=== PATIENT | female | born 1945 | race Caucasian/White ===

== ENCOUNTER 2016-06-18 18:11 | Emergency (ER) | payer MEDICARE, OTHER ==
--- NOTE | 2016-06-18 19:15 | DIAGNOSTIC IMAGING REPORT ---
PROCEDURE: CT HEAD WITHOUT CONTRAST INDICATION: Dizziness , initial encounter TECHNIQUE: Noncontrast axial images with sagittal and coronal reformations. COMPARISON: Head CT 06/08/2015 FINDINGS: Sulci and ventricular cyst are normal. Moderate to severe white matter chronic ischemic changes. Stable small lacunar infarcts in the basal ganglia bilaterally. Old right frontal lobe infarct. No evidence of acute intracranial process. Mild right maxillary sinus disease. Mastoids are clear. IMPRESSION: 1. No acute intracranial abnormality 2. Moderate to severe white matter chronic ischemic changes with stable tiny lacunar infarcts in the basal ganglia bilaterally 3. Old right frontal lobe infarct 4. Findings discussed with Dr. Polk at 07:14 p.m., [place] Standard Time
--- NOTE | 2016-06-18 19:47 | ED ORDER SUMMARY ---
..... Patient: LIZZIE GIRALDO OrderSheet [facility] VisitID: [id number] [place] [address] 71y, F Registration Date/Time: 06/18/2016 ORDER SHEET Weight: 58.9 kg (stated) Allergies: Vancomycin GENERAL ORDERS: CT Head wo Cont Urgent (18:44 06/18/2016 Sammie PEREZ) (Ack 18:48 TBergley) (19:11 RFay) CBC w Diff Urgent (18:44 06/18/2016 Sammie PEREZ) (Ack 18:48 TBergley) (18:48 TBergley) CMP Urgent (18:44 06/18/2016 Sammie PEREZ) (Ack 18:48 TBergley) (18:48 TBergley) UA-Culture if indicated Urgent (18:44 06/18/2016 Sammie PEREZ) (Ack 18:48 TBergley) (19:35 ALawrence ER Tech1) EKG - ER Stat (18:45 06/18/2016 Sammie PEREZ) (Ack 18:48 TBergley) (18:49 TBergley) MEDICATION ORDERS: Antivert PO 25 mg (NOW) (19:35 06/18/2016 Sammie PEREZ) (19:55 DBeyer R.N.) Bactrim DS PO (Tablet 800-160 mg) 1 tab (NOW) (19:43 06/18/2016 Sammie PEREZ) (19:56 DBeyer R.N.) IV FLUIDS: Zofran IV 4 mg (NOW) (19:35 06/18/2016 Sammie PEREZ) (19:55 DBeyer R.N.) ORDER SHEET NOTES: [Electronically signed by Sandro Aly R.N. (02:59 06/19/2016)] [Electronically signed by Nick Polk MD (23:20 06/20/2016)] [Electronically locked/signed by Sandro Aly R.N. (02:59 06/19/2016)]
--- NOTE | 2016-06-18 19:47 | ED NURSING NOTES ---
Clinical Report - Nurses [facility] [address] [place] [address] 06/18/2016 18:13 [id number] Triage time 18:15. Acuity: LEVEL 2. 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 18:27 06/18/16. SEPSIS SCREEN: Sepsis Screen. Negative (no infection suspected/documented). LORELEI COMA SCORE: [place] Coma Scale: 15- eyes open spontaneously (4); best verbal response- oriented x 4 (5); best motor response- obeys commands (6). --18:27 Sam Milan R.N. 18:19 06/18/16. BP: 204/90. HR: 58. RR: 12. O2 saturation: 100% on room air. Temp: 97.9 F (oral). Pain level now: 0/10. --18:27 Sam Milan R.N. 18:28 06/18/16. BP: 179/94. HR: 58. RR: 12. O2 saturation: 99% on room air. Pain level now: 0/10. --18:28 Sam Milan R.N. Weight: 58.9 kg stated. Height/Length: 65 inches Per Patient. BMI: 21.6. --18:26 Sam Milan R.N. Medications FLUoxetine HCl Oral. Lantus Subcutaneous. Methotrexate Sodium Injection. Metoprolol Tartrate Oral. Pravastatin Sodium Oral. --18:23 Sam Milan R.N. Allergies Vancomycin. --18:22 Sam Milan R.N. History Arrived by private vehicle. Historian: patient. Accompanied by family. Patient was last known well (1714). She has had trouble walking. PAST MEDICAL HX: Immunizations: (Flu vaccine 2016). SOCIAL HX: Never smoker. No alcohol use or drug use. ABUSE ASSESSMENT: No report of abuse. --18:27 Simbeck, Sam, R.N. PROBLEMS: Diabetes Mellitus. CVA - Cerebrovascular Accident. Fall. Abrasion(s). Contusion. Tetanus Status. CVA with brain bleed. Diabetes Mellitus Type 2. Rheumatoid Arthritis. Hypercholesterolemia. Hypertension. --18:24 Sam Milan R.N. ADDITIONAL SURGERIES: . Knee Surgery. Rt knee. Sleep apnea surgery. --18:24 Sam Milan R.N. Interventions ID band on patient. To treatment room. --18:27 Sam Milan R.N. PHYSICAL ASSESSMENT late entry -18:26. To room via wheelchair. GENERAL / NEURO / PSYCH: Oriented X 4. Alert. Speech within normal limits. She has had new onset of generalized weakness. Staggering gait (per pt report. Transferred from w/c to bed with assist, stand pivot.). HEENT: Pupils equal, round and reactive to light. RESPIRATORY: Breath sounds within normal limits. Respirations not labored. CVS: Cardiac rhythm: sinus bradycardia. Capillary refill less than 2 seconds. GI / : Abdomen soft and nontender. SKIN: Skin is warm and dry. --18:38 Sam Milan R.N. NURSING PROGRESS NOTES late entry -18:26. Cardiac rhythm: sinus bradycardia. bus driver/monitor, pulse oximeter and NIBP monitor placed on patient; monitoring manager- Lead II and V5; monitor alarms on. Patient gowned. Reassurance given. Two patient identifiers checked. Call light placed in reach. Side rails up x 2. Bed placed in lowest position. Brakes of bed on. Patient ready for evaluation- chart flagged. --18:39 Sam Milan R.N. 18:26 06/18/2016 Site #1 started via IV in the right wrist with an 20g angiocath, with aseptic technique and good blood return; one attempt. Blood drawn: rainbow set. Labeled in the presence of the patient and sent to the lab. Saline lock flushed with 10 mL saline. --18:41 Sam Milan R.N. EKG time: (1830 PM). EKG was ordered, performed by a tech and shown to the ED physician. --18:52 Abby Luciano 18:50 06/18/16. BP: 184/97. HR: 56. RR: 18. O2 saturation: 97% on room air. 18:28 06/18/16. BP: 179/94. HR: 58. RR: 12. O2 saturation: 99% on room air. Pain level now: 0/10. 18:19 06/18/16. BP: 204/90. HR: 58. RR: 12. O2 saturation: 100% on room air. Temp: 97.9 F (oral). Pain level now: 0/10. --19:12 Rachid Robles R.N. 19:10. Care transferred and report given (LYNNE Jo). --19:12 Sam Milan R.N. 19:34 06/18/16. BP: 168/111. HR: 54. RR: 20. O2 saturation: 96%. --19:35 Sandro Aly R.N. ( Pt able to stand for bedside commode she was dizzy but steady.). --19:35 Sandro Aly R.N. 19:55 06/18/2016 Zofran (Ondansetron HCl) IVP 4 mg given over 2 minute(s) via site #1. Allergies verified and confirmed 5 rights. IV patency established. IV site checked: no pain, redness, or swelling. IV flushed thoroughly pre- and post-medication administration. IVP given by RN. --19:55 Sandro Aly R.N. 19:55 06/18/2016 Antivert (Meclizine HCl) PO 25 mg given. Allergies verified, confirmed 5 rights and sedative warning given to the patient. --19:55 Sandro Aly R.N. 19:56 06/18/2016 Bactrim DS (Sulfamethoxazole-TMP DS) PO 1 tab given. Allergies verified and confirmed 5 rights. --19:56 Sandro Aly R.N. DISPOSITION / DISCHARGE Departure time: 1999. Condition at departure: improved. No learning barriers present. Reviewed medication(s) side effects information. Prescription(s) given to the patient. Patient verbalized understanding. Written instructions provided in Peruvian. The patient was discharged by the physician. She was discharged home and accompanied by family. ( Pt able to stand to use wheelchair steady on her feet pt verbalized understanding of discharge instructions and follow up care). --20:34 Sandro Aly R.N. 20:00 06/18/16. BP: 184/89. HR: 56. RR: 18. O2 saturation: 97%. Temp: 97.8 F. Pain level now: 0/10. --20:34 Sandro Aly R.N. Locked/Released at 06/19/2016 2:59 by Sandro Aly R.N.
--- NOTE | 2016-06-18 19:47 | ED NURSING NOTES ---
Clinical Report - Nurses [facility] [address] [place] [address] 06/18/2016 18:13 [id number] Triage time 18:15. Acuity: LEVEL 2. 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 18:27 06/18/16. SEPSIS SCREEN: Sepsis Screen. Negative (no infection suspected/documented). LORELEI COMA SCORE: [place] Coma Scale: 15- eyes open spontaneously (4); best verbal response- oriented x 4 (5); best motor response- obeys commands (6). --18:27 Sam Milan R.N. 18:19 06/18/16. BP: 204/90. HR: 58. RR: 12. O2 saturation: 100% on room air. Temp: 97.9 F (oral). Pain level now: 0/10. --18:27 Sam Milan R.N. 18:28 06/18/16. BP: 179/94. HR: 58. RR: 12. O2 saturation: 99% on room air. Pain level now: 0/10. --18:28 Sam Milan R.N. Weight: 58.9 kg stated. Height/Length: 65 inches Per Patient. BMI: 21.6. --18:26 Sam Milan R.N. Medications FLUoxetine HCl Oral. Lantus Subcutaneous. Methotrexate Sodium Injection. Metoprolol Tartrate Oral. Pravastatin Sodium Oral. --18:23 Sam Milan R.N. Allergies Vancomycin. --18:22 Sam Milan R.N. History Arrived by private vehicle. Historian: patient. Accompanied by family. Patient was last known well (1714). She has had trouble walking. PAST MEDICAL HX: Immunizations: (Flu vaccine 2016). SOCIAL HX: Never smoker. No alcohol use or drug use. ABUSE ASSESSMENT: No report of abuse. --18:27 Simbeck, Sam, R.N. PROBLEMS: Diabetes Mellitus. CVA - Cerebrovascular Accident. Fall. Abrasion(s). Contusion. Tetanus Status. CVA with brain bleed. Diabetes Mellitus Type 2. Rheumatoid Arthritis. Hypercholesterolemia. Hypertension. --18:24 Sam Milan R.N. ADDITIONAL SURGERIES: . Knee Surgery. Rt knee. Sleep apnea surgery. --18:24 Sam Milan R.N. Interventions ID band on patient. To treatment room. --18:27 Sam Milan R.N. PHYSICAL ASSESSMENT late entry -18:26. To room via wheelchair. GENERAL / NEURO / PSYCH: Oriented X 4. Alert. Speech within normal limits. She has had new onset of generalized weakness. Staggering gait (per pt report. Transferred from w/c to bed with assist, stand pivot.). HEENT: Pupils equal, round and reactive to light. RESPIRATORY: Breath sounds within normal limits. Respirations not labored. CVS: Cardiac rhythm: sinus bradycardia. Capillary refill less than 2 seconds. GI / : Abdomen soft and nontender. SKIN: Skin is warm and dry. --18:38 Sam Milan R.N. NURSING PROGRESS NOTES late entry -18:26. Cardiac rhythm: sinus bradycardia. plastering supervisor, pulse oximeter and NIBP monitor placed on patient; collections officer- Lead II and V5; monitor alarms on. Patient gowned. Reassurance given. Two patient identifiers checked. Call light placed in reach. Side rails up x 2. Bed placed in lowest position. Brakes of bed on. Patient ready for evaluation- chart flagged. --18:39 Sam Milan R.N. 18:26 06/18/2016 Site #1 started via IV in the right wrist with an 20g angiocath, with aseptic technique and good blood return; one attempt. Blood drawn: rainbow set. Labeled in the presence of the patient and sent to the lab. Saline lock flushed with 10 mL saline. --18:41 Sam Milan R.N. EKG time: (1830 PM). EKG was ordered, performed by a tech and shown to the ED physician. --18:52 Abby Luciano 18:50 06/18/16. BP: 184/97. HR: 56. RR: 18. O2 saturation: 97% on room air. 18:28 06/18/16. BP: 179/94. HR: 58. RR: 12. O2 saturation: 99% on room air. Pain level now: 0/10. 18:19 06/18/16. BP: 204/90. HR: 58. RR: 12. O2 saturation: 100% on room air. Temp: 97.9 F (oral). Pain level now: 0/10. --19:12 Rachid Robles R.N. 19:10. Care transferred and report given (LYNNE Jo). --19:12 Sam Milan R.N. 19:34 06/18/16. BP: 168/111. HR: 54. RR: 20. O2 saturation: 96%. --19:35 Sandro Aly R.N. ( Pt able to stand for bedside commode she was dizzy but steady.). --19:35 Sandro Aly R.N. 19:55 06/18/2016 Zofran (Ondansetron HCl) IVP 4 mg given over 2 minute(s) via site #1. Allergies verified and confirmed 5 rights. IV patency established. IV site checked: no pain, redness, or swelling. IV flushed thoroughly pre- and post-medication administration. IVP given by RN. --19:55 Sandro Aly R.N. 19:55 06/18/2016 Antivert (Meclizine HCl) PO 25 mg given. Allergies verified, confirmed 5 rights and sedative warning given to the patient. --19:55 Sandro Aly R.N. 19:56 06/18/2016 Bactrim DS (Sulfamethoxazole-TMP DS) PO 1 tab given. Allergies verified and confirmed 5 rights. --19:56 Sandro Aly R.N. DISPOSITION / DISCHARGE Departure time: 1999. Condition at departure: improved. No learning barriers present. Reviewed medication(s) side effects information. Prescription(s) given to the patient. Patient verbalized understanding. Written instructions provided in Monegasque. The patient was discharged by the physician. She was discharged home and accompanied by family. ( Pt able to stand to use wheelchair steady on her feet pt verbalized understanding of discharge instructions and follow up care). --20:34 Sandro Aly R.N. 20:00 06/18/16. BP: 184/89. HR: 56. RR: 18. O2 saturation: 97%. Temp: 97.8 F. Pain level now: 0/10. --20:34 Sandro Aly R.N. Locked/Released at 06/19/2016 2:59 by Sandro Aly R.N.
--- NOTE | 2016-06-18 19:47 | ED ORDER SUMMARY ---
..... Patient: LIZZIE GIRALDO OrderSheet [facility] VisitID: [id number] [place] [address] 71y, F Registration Date/Time: 06/18/2016 ORDER SHEET Weight: 58.9 kg (stated) Allergies: Vancomycin GENERAL ORDERS: CT Head wo Cont Urgent (18:44 06/18/2016 Sammie PEREZ) (Ack 18:48 TBergley) (19:11 RFay) CBC w Diff Urgent (18:44 06/18/2016 Sammie PEREZ) (Ack 18:48 TBergley) (18:48 TBergley) CMP Urgent (18:44 06/18/2016 Sammie PEREZ) (Ack 18:48 TBergley) (18:48 TBergley) UA-Culture if indicated Urgent (18:44 06/18/2016 Sammie PEREZ) (Ack 18:48 TBergley) (19:35 ALawrence ER Tech1) EKG - ER Stat (18:45 06/18/2016 Sammie PEREZ) (Ack 18:48 TBergley) (18:49 TBergley) MEDICATION ORDERS: Antivert PO 25 mg (NOW) (19:35 06/18/2016 Sammie PEREZ) (19:55 DBeyer R.N.) Bactrim DS PO (Tablet 800-160 mg) 1 tab (NOW) (19:43 06/18/2016 Sammie PEREZ) (19:56 DBeyer R.N.) IV FLUIDS: Zofran IV 4 mg (NOW) (19:35 06/18/2016 Sammie PEREZ) (19:55 DBeyer R.N.) ORDER SHEET NOTES: [Electronically signed by Sandro Aly R.N. (02:59 06/19/2016)] [Electronically signed by Nick Polk MD (23:20 06/20/2016)] [Electronically locked/signed by Sandro Aly R.N. (02:59 06/19/2016)]
--- NOTE | 2016-06-18 19:47 | ED CLINICAL REPORT ---
Clinical Report - Physicians/Mid Levels [facility] [address] [place] [address] 06/18/2016 18:13 Patient: LIZZIE GIRALDO Time Seen: 18:31. Arrived- By private vehicle. Historian- patient. HISTORY OF PRESENT ILLNESS Chief Complaint: ( 11 am HBP and dizzy). Severity described as severe at its maximum. When seen in the E.D., severity described as mild. Modifying factors- (Much worse with head movements). Described as a moderate sense of rotation and sense of movement. The patient has had nausea. No vomiting, hearing loss or ear pain. (Head movements make it worse.). Recent medical care: Not recently seen/assessed. REVIEW OF SYSTEMS No headache, double vision, head injury, chest pain or palpitations. No black stools, fever, sore throat, cough or difficulty breathing. No abdominal pain, diarrhea or difficulty with urination. PAST HISTORY ( PCP: MINE Illness: DM, falls PROBLEMS: Diabetes Mellitus. CVA - Cerebrovascular Accident. Fall. Abrasion(s). Contusion. Tetanus Status. CVA with brain bleed. Diabetes Mellitus Type 2. Rheumatoid Arthritis. Hypercholesterolemia. Hypertension. --18:24 Sam Milan R.N. ADDITIONAL SURGERIES: . Knee Surgery. Rt knee. Sleep apnea surger). SOCIAL HISTORY Never smoker. ADDITIONAL NOTES The nursing notes have been reviewed. PHYSICAL EXAM Vital Signs: 06/18/2016 20:00 BP: 184/89. HR: 56. RR: 18. O2 saturation: 97%. Temp: 97.8 F. Pain level now: . 06/18/2016 19:34 BP: 168/111. HR: 54. RR: 20. O2 saturation: 96%. 06/18/2016 18:50 BP: 184/97. HR: 56. RR: 18. O2 saturation: 97%. 06/18/2016 18:28 BP: 179/94. HR: 58. RR: 12. O2 saturation: 99%. Pain level now: . 06/18/2016 18:19 BP: 204/90. HR: 58. RR: 12. O2 saturation: 100%. Temp: 97.9 F. Pain level now: 0/10. Appearance: Alert. No acute distress. Eyes: Pupils equal, round and reactive to light. No nystagmus. Extraocular movements normal. ENT: Normal ENT inspection. TM's normal. Moist mucous membranes. Pharynx normal. Neck: Normal inspection. No meningeal signs. (Carotid pulses 2-3 plus and symmetrical). CVS: Normal heart rate and rhythm. Heart sounds normal. Respiratory: No respiratory distress. Breath sounds normal. Abdomen: Soft and nontender. No organomegaly. Skin: Skin warm. Normal skin color. Extremities: Extremities exhibit normal ROM. No lower extremity edema. Neuro: Alert. Oriented X 3. Mood/affect normal. Speech normal. Cranial nerves normal (as tested). No cerebellar findings. No motor deficit. No sensory deficit. LABS, X-RAYS, AND EKG EKG: Rate: 56. Normal P waves. Normal JORGE LUIS. Normal QRS complex. Normal axis. T wave inversion. J-point elevation in lead V3, V4, V5 and V6. EKG unchanged when compared with prior EKG. ( to June 08). Laboratory Tests: UA-Culture if indicated: (FAHAD: 06/18/2016 19:18) ( MsgRcvd 06/18/2016 19:39) Final results Test Result Flag Units (Reference) URINE COLOR YELLOW URINE APPEARANCE HAZY URINE GLUCOSE NEGATIVE (NEGATIVE) URINE BILIRUBIN NEGATIVE (NEGATIVE) URINE KETONE NEGATIVE (NEGATIVE) URINE SPECIFIC GRAVITY 1.015 (1.010-1.030) URINE PH 7.0 (5.0-8.0) URINE PROTEIN 1+ (NEGATIVE) URINE UROBILINOGEN 0.2 EU/dL (0.2-1.0) URINE NITRITE NEGATIVE (NEGATIVE) URINE BLOOD NEGATIVE (NEGATIVE) URINE LEUK ESTERASE NEGATIVE (NEGATIVE) URINE RBC NONE SEEN rbc/hpf (0-1) URINE WBC 5-10 wbc/hpf (0-1) URINE EPITHELIAL CELLS 1-3 EPI/hpf (0-5) URINE BACTERIA NONE SEEN (NONE SEEN) URINE COMMENT CULT NOT INDICATED URINE CULTURES ARE SET-UP BASED ON THE FOLLOWING CRITERIA:POSITIVE NITRITEPOSITIVE LEUKOCYTE ESTERASEGREATER THAN 10 WHITE BLOOD CELLSMODERATE (2+) OR GREATER BACTERIA CBC w Diff: (FAHAD: 06/18/2016 18:28) ( MsgRcvd 06/18/2016 18:54) Final results Test Result Flag Units (Reference) WHITE BLOOD COUNT 9.6 K/uL (4.5-11.5) RED BLOOD COUNT 4.08 M/uL (4.00-5.20) HEMOGLOBIN 12.8 gm/dL (12.0-16.0) HEMATOCRIT 38.0 % (36.0-46.0) MEAN CELL VOLUME 93 fL (80-100) MEAN CORPUSCULAR HGB 31 pg (26-34) MEAN CORPUSCULAR HGB CONC 34 g/dL (31-37) RED CELL DISTRIBUTION WIDTH 13.2 % (11.6-14.8) PLATELET COUNT 283 K/uL (150-400) NEUTROPHIL % 84.8 H % (50-75) LYMPH % 11.1 L % (25-40) MONO % 3.5 % (3-14) EOSINOPHIL % 0.3 % (0-4) BASOPHIL % 0.3 % (0-2) CMP: (FAHAD: 06/18/2016 18:28) ( MsgRcvd 06/18/2016 19:23) Final results Test Result Flag Units (Reference) GLUCOSE 145 H mg/dL (70-110) BUN 16 mg/dL (7-18) CREATININE 0.9 mg/dL (0.6-1.3) Estimated GFR >60 mL/min Estimated GFR- >60 mL/min Note: Persistent reduction over 3 months in eGFR<60 mL/min/1.73 m2 defines CKD. Patients with eGFR values>=60 mL/min/1.73 m2 may also have CKD if evidence ofpersistent proteinuria. Additional information may be foundat www.kidney.org. SODIUM 140 mmol/L (136-145) POTASSIUM 4.2 mmol/L (3.5-5.1) CHLORIDE 105 mmol/L (98-107) CARBON DIOXIDE 30 mmol/L (21-32) CALCIUM 9.1 mg/dL (8.5-10.1) TOTAL PROTEIN 7.4 g/dL (6.4-8.2) ALBUMIN 3.8 g/dL (3.3-5.0) BILIRUBIN, TOTAL 0.6 mg/dL (0.0-1.0) ALKALINE PHOSPHATASE 116 U/L (46-116) AST (SGOT) 15 U/L (15-37) ALT (SGPT) 19 U/L (12-78) . PROGRESS AND PROCEDURES Course of Care: 19:35 06/18/16. vomited - good, this gives even stronger support for peripheral vertigo. 19:42 06/18/16. Possible UTI. Disposition: Discharged. Condition: stable. CLINICAL IMPRESSION Acute vertigo of peripheral origin. Urinary tract infection. INSTRUCTIONS (IMMEDIATE RECHECK IF WORSE - LESS ALERT, PROBLEMS TALKING OR MOVING AN ARM OR A LEG BE VERY CAREFUL OF FALLS - USE A WALKER YOU MAY HAVE A URINARY TRACT INFECTION WELL. IT HAS NOTHING TO DO WITH THE VERTIGO). Prescription Medications: Zofran 4 mg: Take 1 orally every six hours as needed for nausea/vomiting. Dispense ten (10). No refills. Substitution is permissible. Antivert 25mg: Take 1 tablet orally every 8 hours as needed for dizziness. Dispense thirty (30). No refills. Substitution is permissible. Septra DS 800 mg / 160 mg: take 1 tablet orally every 12 hours for 7 days. Dispense fourteen (14). No refills. Substitution is permissible. (Electronically signed by Nick Polk MD 06/20/2016 23:20)
--- NOTE | 2016-06-20 23:20 | ED MAR SUMMARY ---
..... Medication Administration Record [facility] [address] [place] [address] Patient: LIZZIE GIRALDO Visit ID: [id number] 71y, F Weight: 58.9 kg Height/Length: 65 in BMI: 21.6 ALLERGIES: Vancomycin Given 19:06/18/2016 Sandro Aly R.N. Medication Administered: ZOFRAN [IVP] (ONDANSETRON HCL), Dose: 4 mg IVP over 2 minute(s), Site: #1 right wrist. Medication Ordered: Zofran IV 4 mg (NOW). Given :06/18/2016 Sandro Aly R.N. Medication Administered: ANTIVERT [PO] (MECLIZINE HCL), Dose: 25 mg PO. Medication Ordered: Antivert PO 25 mg (NOW). Given 19:06/18/2016 Sandro Aly R.NYamilex Medication Administered: BACTRIM DS [PO] (SULFAMETHOXAZOLE-TMP DS), Dose: 1 tab PO. Medication Ordered: Bactrim DS PO (Tablet 800-160 mg) 1 tab (NOW).
--- NOTE | 2016-06-20 23:20 | ED MED RECONCILIATION SUMMARY ---
Patient: LIZZIE GIRALDO Medication Reconciliation Report [facility] VisitID: [id number] [place] [address] 71y, F Registration Date/Time: 06/18/2016 Weight: 58.9 kg Height/Length: 65 in. BMI: 21.6 ALLERGIES: Vancomycin The patient's Home Medications are listed below: THE FOLLOWING MEDICATIONS NEED TO BE RECONCILED: FLUoxetine HCl Oral Lantus Subcutaneous Methotrexate Sodium Injection Metoprolol Tartrate Oral Pravastatin Sodium Oral The source(s) of the original Home Medication information: Not obtained. The following Medications were given to the patient in the Emergency Department: Zofran [IVP] IVP 4 mg, administered: 06/18/2016 7:55:00 PM Antivert [PO] PO 25 mg, administered: 06/18/2016 7:55:00 PM Bactrim DS [PO] PO 1 tab, administered: 06/18/2016 7:56:00 PM The following Medications were prescribed to the patient: Zofran 4 mg: Take 1 orally every six hours as needed for nausea/vomiting. Dispense ten (10). No refills. Substitution is permissible. -- Nick Polk MD Antivert 25mg: Take 1 tablet orally every 8 hours as needed for dizziness. Dispense thirty (30). No refills. Substitution is permissible. -- Nick Polk MD Septra DS 800 mg / 160 mg: take 1 tablet orally every 12 hours for 7 days. Dispense fourteen (14). No refills. Substitution is permissible. -- Nick Polk MD
--- NOTE | 2016-06-20 23:20 | ED DISCHARGE INSTRUCTIONS ---
Patient: LIZZIE GIRALDO General Instructions [facility] VisitID: [id number] [place] [address] 71y, F Registration Date/Time: 06/18/2016 Acute vertigo of peripheral origin. Urinary tract infection. INSTRUCTIONS (IMMEDIATE RECHECK IF WORSE - LESS ALERT, PROBLEMS TALKING OR MOVING AN ARM OR A LEG BE VERY CAREFUL OF FALLS - USE A WALKER YOU MAY HAVE A URINARY TRACT INFECTION WELL. IT HAS NOTHING TO DO WITH THE VERTIGO). Prescription Medications: Zofran 4 mg: Take 1 orally every six hours as needed for nausea/vomiting. Dispense ten (10). No refills. Substitution is permissible. Antivert 25mg: Take 1 tablet orally every 8 hours as needed for dizziness. Dispense thirty (30). No refills. Substitution is permissible. Septra DS 800 mg / 160 mg: take 1 tablet orally every 12 hours for 7 days. Dispense fourteen (14). No refills. Substitution is permissible. ADDITIONAL INFORMATION Vertigo [Unknown Cause] The "inner ear" is located behind the middle ear. It is part of the balance center of your body. Disease of the inner ear causes vertigo -- a false feeling of motion. It feels as if you or the room is spinning. A vertigo attack may cause sudden nausea, vomiting and heavy sweating. Severe vertigo causes a loss of balance and can cause you to fall. During vertigo, small head movements and changes in body position will often make the symptoms worse. The causes of vertigo include: Inflammation of the inner ear Disease of the nerves to the inner ear Movement of calcium particles in the inner ear Poor blood flow to the balance centers of the brain An episode of vertigo may last seconds, minutes or hours. Once you are over the first episode, it may never return. However, sometimes symptoms may recur off and on over several weeks or longer, depending on the cause. There may be ringing in the ears or hearing loss, which may be temporary or permanent. Home Care: If symptoms are severe, rest quietly in bed. Change positions very slowly. There is usually one position that will feel best, such as lying on one side or lying on your back with your head slightly raised on pillows. Do not drive or work with dangerous machinery for one week after symptoms go away, in case the symptoms suddenly return. Take medicine as prescribed to relieve your symptoms. Unless another medicine was prescribed for nausea, vomiting and vertigo, you may use hnnk-evn-wxgdqty motion sickness pills, such as meclizine (Bonine, Bonamine, Antivert) or dimenhydrinate (Dramamine). Follow Up with your doctor or as directed by our staff. Tell the doctor if your ears keep ringing, or if your hearing does not return to normal. Get Prompt Medical Attention if any of the following occur: Vertigo gets worse and is not controlled by medicine prescribed Repeated vomiting not relieved by medicine prescribed Increased weakness or fainting Severe headache or unusually drowsy or confused Weakness of an arm or leg or one side of the face Difficulty with speech or vision Bladder Infection,Female (Adult) A bladder infection ("cystitis" or "UTI") usually causes a constant urge to urinate and a burning when passing urine. Urine may be cloudy, smelly or dark. There may be pain in the lower abdomen. A bladder infection occurs when bacteria from the vaginal area enter the bladder opening (urethra). This can occur from sexual intercourse, wearing tight clothing, dehydration and other factors. Home Care: Drink lots of fluids (at least 6-8 glasses a day, unless you must restrict fluids for other medical reasons). This will force the medicine into your urinary system and flush the bacteria out of your body. Avoid sexual intercourse until your symptoms are gone. Avoid caffeine, alcohol and spicy foods. These can irritate the bladder. A bladder infection is treated with antibiotics. You may also be given Pyridium (generic = phenazopyridine) to reduce the burning sensation. This medicine will cause your urine to become a bright orange color. The orange urine may stain clothing. You may wear a pad or panty-liner to protect clothing. Preventing Future Infections: Always wipe from front to back after a bowel movement. Keep the genital area clean and dry. Drink plenty of fluids each day to avoid dehydration. Both sexual partners should wash before intercourse. Urinate right after intercourse to flush out the bladder. Wear cotton underwear and cotton-lined panty hose; avoid tight-fitting pants. If you are on control pills and are having frequent bladder infections, discuss with your doctor. Follow Up: Return to this facility or see your doctor if ALL symptoms are not gone after three days of treatment. Get Prompt Medical Attention if any of the following occur: Fever of 100.4F (38C) or higher, or as directed by your healthcare provider No improvement by the third day of treatment Increasing back or abdominal pain Repeated vomiting; unable to keep medicine down Weakness, dizziness or fainting Vaginal discharge Pain, redness or swelling in the labia (outer vaginal area) You have been given the following additional information: Vertigo, Unspecified Bladder Infection, Female (Adult) (Electronically signed by Nick Polk MD 06/20/2016 23:20)
--- NOTE | 2016-06-20 23:20 | ED MAR SUMMARY ---
..... Medication Administration Record [facility] [address] [place] [address] Patient: LIZZIE GIRALDO Visit ID: [id number] 71y, F Weight: 58.9 kg Height/Length: 65 in BMI: 21.6 ALLERGIES: Vancomycin Given 19:06/18/2016 Sandro Aly R.N. Medication Administered: ZOFRAN [IVP] (ONDANSETRON HCL), Dose: 4 mg IVP over 2 minute(s), Site: #1 right wrist. Medication Ordered: Zofran IV 4 mg (NOW). Given :06/18/2016 Sandro Aly R.N. Medication Administered: ANTIVERT [PO] (MECLIZINE HCL), Dose: 25 mg PO. Medication Ordered: Antivert PO 25 mg (NOW). Given 19:06/18/2016 Sandro Aly R.NYamilex Medication Administered: BACTRIM DS [PO] (SULFAMETHOXAZOLE-TMP DS), Dose: 1 tab PO. Medication Ordered: Bactrim DS PO (Tablet 800-160 mg) 1 tab (NOW).
--- NOTE | 2016-06-20 23:20 | ED MED RECONCILIATION SUMMARY ---
Patient: LIZZIE GIRALDO Medication Reconciliation Report [facility] VisitID: [id number] [place] [address] 71y, F Registration Date/Time: 06/18/2016 Weight: 58.9 kg Height/Length: 65 in. BMI: 21.6 ALLERGIES: Vancomycin The patient's Home Medications are listed below: THE FOLLOWING MEDICATIONS NEED TO BE RECONCILED: FLUoxetine HCl Oral Lantus Subcutaneous Methotrexate Sodium Injection Metoprolol Tartrate Oral Pravastatin Sodium Oral The source(s) of the original Home Medication information: Not obtained. The following Medications were given to the patient in the Emergency Department: Zofran [IVP] IVP 4 mg, administered: 06/18/2016 7:55:00 PM Antivert [PO] PO 25 mg, administered: 06/18/2016 7:55:00 PM Bactrim DS [PO] PO 1 tab, administered: 06/18/2016 7:56:00 PM The following Medications were prescribed to the patient: Zofran 4 mg: Take 1 orally every six hours as needed for nausea/vomiting. Dispense ten (10). No refills. Substitution is permissible. -- Nick Polk MD Antivert 25mg: Take 1 tablet orally every 8 hours as needed for dizziness. Dispense thirty (30). No refills. Substitution is permissible. -- Nick Polk MD Septra DS 800 mg / 160 mg: take 1 tablet orally every 12 hours for 7 days. Dispense fourteen (14). No refills. Substitution is permissible. -- Nick Polk MD
== END 2016-06-18 20:00 | disposition home or self-care (01) ==
LOC: ED SRH 18:11
DX: H81.399 Other peripheral vertigo, unspecified ear (principal); N39.0 Urinary tract infection, site not specified; E78.00 Pure hypercholesterolemia, unspecified; I10 Essential (primary) hypertension; E11.9 Type 2 diabetes mellitus without complications; Z79.4 Long term (current) use of insulin; Z79.899 Other long term (current) drug therapy; Z88.1 Allergy status to other antibiotic agents
CPT/HCPCS: 90004; 90100; 95059